=== PATIENT | male | born 1955 | race African-American/Black ===

== ENCOUNTER → 2017-01-24 | Outpatient (CLI) | payer MEDICARE, MEDICAID ==
[~2017-01-24] MED LIST: AMOXICILLIN; ASPIRIN; AZITHROMYCIN; BENAZEPRIL; HCTZ; LANTUS; SIMVASTATIN
== END | disposition home or self-care (01) ==
LOC: RAD 14:32
PROVIDERS: ATTEND Family Medicine
DX: M25.561 Pain in right knee (principal); M25.461 Effusion, right knee; I70.8 Atherosclerosis of other arteries
CPT/HCPCS: 73562

== ENCOUNTER 2019-03-31 15:53 | Emergency (ER) | payer MEDICARE, MEDICAID ==
[~2019-03-31] VITALS: Ht 182.9 cm; Wt 87.0 kg
[2019-03-31] MEDS ORDERED: IBUPROFEN 800MG TABLET PO ONE (17:00)
[2019-03-31 18:07] VITALS: BP 151/84
== END 2019-03-31 18:07 | disposition home or self-care (01) ==
LOC: ER 15:53
DX: S70.01XA Contusion of right hip, initial encounter (principal); F12.10 Cannabis abuse, uncomplicated; E11.9 Type 2 diabetes mellitus without complications; W01.0XXA Fall on same level from slipping, tripping and stumbling without subsequent striking against object, initial encounter; Y93.89 Activity, other specified; Y92.89 Other specified places as the place of occurrence of the external cause; Y99.8 Other external cause status; Z96.649 Presence of unspecified artificial hip joint; Z79.82 Long term (current) use of aspirin; Z79.899 Other long term (current) drug therapy
CPT/HCPCS: 73502; 99283

== ENCOUNTER 2019-07-17 11:49 | Emergency (ER) | payer MEDICARE, MEDICAID ==
[~2019-07-17] VITALS: Ht 182.9 cm; Wt 88.0 kg
[2019-07-17 12:09] VITALS: BP 121/80
[2019-07-17 14:18] LABS: CLARITY URINE CLEAR (CLEAR); COLOR URINE DARK YELLOW (YELLOW); KETONES URINE NEGATIVE (NEGATIVE); LEUKOCYTE ESTERASE URINE NEGATIVE (NEGATIVE); NITRITE URINE NEGATIVE (NEGATIVE); OCCULT BLOOD URINE NEGATIVE (NEGATIVE); PROTEIN URINE NEGATIVE (NEGATIVE); SPECIFIC GRAVITY URINE 1.019 (1.005-1.030); UROBILINOGEN URINE 0.2 E.U./dL (0.2-1.0)
[2019-07-20 04:08] LABS: CHLAMYDIA TRACHOMATIS NAA Negative (Negative); NEISSERIA GONORRHOEAE NAA Negative (Negative)
== END 2019-07-17 15:07 | disposition home or self-care (01) ==
LOC: ER 11:49
DX: N48.1 Balanitis (principal); N48.5 Ulcer of penis; E11.9 Type 2 diabetes mellitus without complications; F12.10 Cannabis abuse, uncomplicated; Z79.899 Other long term (current) drug therapy; Z79.82 Long term (current) use of aspirin; Z96.649 Presence of unspecified artificial hip joint
CPT/HCPCS: 81003; 87070; 87491; 87591; 99283

== ENCOUNTER 2021-07-28 17:33 | Emergency (ER) | payer MEDICARE, MEDICAID ==
[~2021-07-28] VITALS: Ht 182.9 cm; Wt 81.6 kg
[2021-07-28] MEDS ORDERED: SULFAMETHOXAZOLE/TRIMETHOPRIM 800/160MG TABLET PO ONE (19:45)
[2021-07-28] MEDS ORDERED: SULF1TAB48 MT (19:59)
[2021-07-28 20:16] VITALS: BP 136/86
== END 2021-07-28 20:20 | disposition home or self-care (01) ==
LOC: ER 17:33
DX: L02.414 Cutaneous abscess of left upper limb (principal); E11.9 Type 2 diabetes mellitus without complications; F12.10 Cannabis abuse, uncomplicated; Z89.439 Acquired absence of unspecified foot; Z79.82 Long term (current) use of aspirin
CPT/HCPCS: 99283

== ENCOUNTER 2022-10-25 09:49 | Emergency (ER) | payer MEDICARE, MEDICAID ==
[~2022-10-25] VITALS: Ht 182.9 cm; Wt 82.0 kg
[~2022-10-25 09:49] MED LIST changes: +SULF1TAB48 MT
[2022-10-25] MEDS ORDERED: IBUPROFEN 400MG TABLET PO ONE (12:15)
[2022-10-25] MEDS ORDERED: IBUP-2028 MT (13:23)
[2022-10-25 14:25] VITALS: BP 145/91
== END 2022-10-25 14:29 | disposition home or self-care (01) ==
LOC: ER 09:49
DX: M79.644 Pain in right finger(s) (principal); E11.9 Type 2 diabetes mellitus without complications; F12.10 Cannabis abuse, uncomplicated; Z98.890 Other specified postprocedural states; Z79.82 Long term (current) use of aspirin
CPT/HCPCS: 73120; 99283

== ENCOUNTER 2024-10-27 08:52 | Emergency (ER) | payer BC, MEDICAID ==
[~2024-10-27] VITALS: Ht 177.8 cm; Wt 82.0 kg
[~2024-10-27 08:52] MED LIST changes: +AMLO5TAB88 MT; +ATOR-2 MT; +CARI250T MT; +EMPA25TA MT; +FURO40TA5 MT; +GABA-1180 MT; +IBUP-2028 MT; +LEVO750T68 PO; +METR-167 MT
[2024-10-27 09:13] VITALS: O2SAT 99
[2024-10-27 11:09] LABS: BASOPHILS % 0.7 % (0.0-2.0); EOSINOPHILS % 0.4 % (0.0-5.0); HEMATOCRIT. 34.1 % (42.0-52.0); LYMPHOCYTES % 24.5 % (20.0-50.0); MEAN CORPUSCULAR HEMOGLOBIN 29.4 pg (28.0-32.0); MEAN CORPUSCULAR HGB CONC 32.3 g/dL (31.0-37.0); MEAN CORPUSCULAR VOLUME 90.8 fL (80.0-94.0); MONOCYTES % 12.4 % (2.0-8.0); PLATELET 251 x1000/uL (130-400); RED BLOOD CELL COUNT 3.76 mill/uL (4.7-6.1); RED CELL DISTRIBUTION WIDTH 13.7 % (11.6-14.6); WHITE BLOOD COUNT 4.9 x1000/uL (4.5-11.0)
[2024-10-27] MEDS ORDERED: ACETAMINOPHEN 325MG TABLET PO PRN (11:15)
[2024-10-27] MEDS ORDERED: DEXTROSE 50% WATER 50ML SYRINGE IV PRN (11:15)
[2024-10-27] MEDS ORDERED: ONDANSETRON HCL 4MG/2ML INJ IV PRN (11:15)
[2024-10-27 11:22] LABS: CARBON DIOXIDE 25 mEq/L (21-32); CHLORIDE 104 mEq/L (98-107); POTASSIUM 4.6 mEq/L (3.5-5.1); SODIUM 137 mEq/L (136-145)
[2024-10-27 11:23] LABS: CALCIUM 10.1 mg/dL (8.7-10.4)
[2024-10-27 11:28] LABS: GLUCOSE 283 mg/dL (70-105); UREA NITROGEN BLOOD 35 mg/dL (9-23)
[2024-10-27 11:29] LABS: ALANINE AMINOTRANSFERASE 30 IU/L (10-49); ALBUMIN 4.4 g/dL (3.2-4.8); ASPARTATE AMINOTRANSFERASE 25 IU/L (<34)
[2024-10-27 11:30] LABS: BILIRUBIN TOTAL 0.2 mg/dL (0.1-1.0); PROTEIN TOTAL 7.9 g/dL (6.0-8.3)
[2024-10-27] MEDS: PIPERACILLIN/TAZO 3.375G/50ML 50 ML IV SCH (11:59)
[2024-10-27] MEDS: BLOOD SUGAR DIAGNOSTIC STRIP TEST SCH (13:15)
[2024-10-27] MEDS: INSULIN LISPRO 100 UNITS/ML SUBCUT SCH (13:19)
[2024-10-27 15:59] VITALS: BP 115/64; PULSE 65; RESP 18; TEMP 36.50292; O2SAT 98
[2024-10-27] MEDS ORDERED: PIPERACILLIN/TAZO 3.375G/50ML 50 ML IV SCH (16:00)
[2024-10-27] MEDS ORDERED: INSULIN GLARGINE 100 UNITS/ML SUBCUT SCH (22:00)
== END 2024-10-27 17:55 | disposition left against medical advice (07) ==
LOC: ER 08:52 → EDBEDREQ 10:47 → EDBEDREQTM 10:47 → ER 17:55
DX: Z45.2 Encounter for adjustment and management of vascular access device (principal); E11.69 Type 2 diabetes mellitus with other specified complication; I10 Essential (primary) hypertension; F10.90 Alcohol use, unspecified, uncomplicated; E11.65 Type 2 diabetes mellitus with hyperglycemia; Z79.84 Long term (current) use of oral hypoglycemic drugs; Z79.899 Other long term (current) drug therapy; Y90.9 Presence of alcohol in blood, level not specified
CPT/HCPCS: 99285; 96365; 80053; 82962; 85025; 36415; 96372; J1815; J2543

== ENCOUNTER 2024-10-28 10:24 | Emergency (ER) | payer BC, MEDICAID ==
[~2024-10-28] VITALS: Ht 182.9 cm; Wt 87.0 kg
[2024-10-28 10:41] VITALS: BP 142/75; PULSE 90; RESP 16; TEMP 98.6; O2SAT 100
[2024-10-28] MEDS: LIDOCAINE HCL 1% 10 MG/ML 10ML VIAL ONE (14:46)
== END 2024-10-28 15:12 | disposition home or self-care (01) ==
LOC: ER 10:24
DX: E11.621 Type 2 diabetes mellitus with foot ulcer (principal); Z79.899 Other long term (current) drug therapy
CPT/HCPCS: 36573; 99284; 71045; J3490; C1725

== ENCOUNTER 2024-11-08 10:37 | Emergency (ER) | payer BC ==
[~2024-11-08] VITALS: Ht 182.9 cm; Wt 83.9 kg
[2024-11-08 11:08] VITALS: O2SAT 96
[2024-11-08] MEDS ORDERED: ACET-2708 MT (12:07)
[2024-11-08] MEDS ORDERED: AMOX1TAB16 PO (12:07)
[2024-11-08 12:18] VITALS: BP 112/76; PULSE 86; RESP 19; TEMP 37.11408; O2SAT 99
[2024-11-08] MEDS: BACITRACIN ZINC OINT UDPKT TOP ONE (12:19)
[2024-11-08] MEDS: TETANUS, DIPHTHERIA, PERTUSSIS VAC/PF 0.5ML (>10YR OLD) IM ONE (12:19)
== END 2024-11-08 12:24 | disposition home or self-care (01) ==
LOC: ER 11:55
DX: S71.152A Open bite, left thigh, initial encounter (principal); E11.9 Type 2 diabetes mellitus without complications; Z79.899 Other long term (current) drug therapy; Z79.84 Long term (current) use of oral hypoglycemic drugs; Z23 Encounter for immunization; W54.0XXA Bitten by dog, initial encounter; Y93.01 Activity, walking, marching and hiking; Y92.89 Other specified places as the place of occurrence of the external cause; Y99.8 Other external cause status
CPT/HCPCS: 99283; 90715; 90471; A4663; A4606